=== PATIENT | male | born 1955 | race American Indian/Alaskan Native ===

== ENCOUNTER 2022-03-03 18:22 | Emergency (ER) | payer OTHER ==
--- NOTE | 2022-03-03 22:08 | Cat Scan Report ---
CT head/brain wo con INDICATION / CLINICAL INFORMATION: 66 years Male; R facial droop x 4 days. TECHNIQUE: Routine CT head without contrast. All CT scans at this location are performed using CT dos e reduction for ALARA by means of automated exposure control. COMPARISON: None. FINDINGS: BRAIN / INTRACRANIAL CONTENTS: The motion degrades the image quality. However, there is extensive cer ebral white matter disease most consistent with microvascular angiopathy. There is an older infarct a long the posterior limb of the right internal capsule and lateral right thalamus. There is mild cereb ral atrophy with associated mild prominence of the ventricular system. There is dense calcification along the falx as well as foci along the tentorium. However, there is no clear CT evidence of acute intracranial hemorrhage or significant mass effect. ORBITS: No significant abnormality of visualized orbits. SINUSES / MASTOIDS: No significant abnormality in the visualized paranasal sinuses or mastoid air chiquita ls. CRANIOCERVICAL JUNCTION: No significant abnormality. ADDITIONAL FINDINGS: None. IMPRESSION: 1. There is extensive microvascular angiopathy as described without clear CT evidence of acute intrac ranial hemorrhage. Signer Name: Trever Lofton MD Signed: 03/03/2022 10:04 PM Workstation Name: [id number]
[2022-03-03 22:33] LABS: Alanine Aminotransferase 34 units/L (7-56); Albumin 4.6 g/dL (3.9-5); BUN/Creatinine Ratio 13; Blood Urea Nitrogen 10 mg/dL (9-20); Calcium 9.4 mg/dL (8.4-10.2); Hemolysis Index 4
[2022-03-03 22:58] LABS: Basophils % (Auto) 0.6 % (0.0-1.8); Eosinophils % (Auto) 0.8 % (0.0-4.3); Hematocrit 41.1 % (35.5-45.6); Hemoglobin 13.6 gm/dl (11.8-15.2); Lymphocytes # (Auto) 0.9 K/mm3 (1.2-5.4); Lymphocytes % (Auto) 18.5 % (13.4-35.0); Mean Corpuscular HGB Conc 33 % (32-34); Mean Corpuscular Volume 101 fl (84-94); Monocytes # (Auto) 0.7 K/mm3 (0.0-0.8); Monocytes % (Auto) 14.7 % (0.0-7.3); Platelet Count 131 K/mm3 (140-440); Red Blood Count 4.07 M/mm3 (3.65-5.03); Red Cell Distribution Width 14.1 % (13.2-15.2)
--- NOTE | 2022-03-03 23:43 | Emergency Department Report ---
HPI - General Chief Complaint: Neuro Symptoms/Deficit PUI?: No Time Seen by Provider: 03/03/22 21:04 - HPI HPI: 66-year-old male with self-reported history of CVA in 2019 (pt states he was seen at [facility] and at that time had a headache and left upper extremity and left lower extremity weakness, with current residual chronic left upper extremity and left lower extremity paresthesias), hypertension, hyperlipidemia, sent from [facility] for evaluation of "twisting of my mouth and swelling of my lips." Patient states his symptoms started 3 days ago while he was at work. He denies any headache falls head injury insect bites or allergic reactions. He denies any weakness in his right arm or leg. No diffic ulty talking walking or word finding. Patient reports he is compliant with his medications and takes both his blood pressure medicine as well as his aspirin daily. He last consumed aspirin this morning. Pain 0 out of 10. ED Past Medical Hx - Past Medical History Previous Medical History?: Yes Hx Hypertension: Yes Hx CVA: Yes Additional medical history: gout - Surgical History Past Surgical History?: No - Social History Smoking Status: Never Smoker ED Review of Systems ROS: Stated complaint: RT SIDE FACIAL DROOP/SINCE 03/01 Other details as noted in HPI Comment: All other systems reviewed and negative Physical Exam - Physical Exam Vital Signs: Vital Signs 03/03/22 03/03/22 18:26 20:31 Temperature 98.8 F 98.0 F Pulse Rate 97 H 67 Respiratory 18 Rate Blood Pressure 141/91 Blood Pressure 183/114 [Left] O2 Sat by Pulse 99 100 Oximetry General: Gen: pt is well appearing, no acute distress HEENT: Normocephalic atraumatic pupils equally round and reactive to light extraocular muscles intact sclera anicteric; mild R lower facial asymmetry noted Neck: Full range of motion, no midline spinal tenderness palpation, no JVD, no carotid bruits, no nuchal rigidity CVS: S1-S2 regular rate and rhythm with no gallops rubs or murmurs, chest wall nontender Pulmonary: Clear to auscultation bilaterally, no wheezes rales or rhonchi Abdomen: Soft nondistended nontender no guarding or rebound tenderness, no palpable deformities or step-offs, normal active bowel sounds, no hepatosplenome jaqueline, no pulsatile masses : Deferred Extremities: No cyanosis no clubbing no edema, intact distal peripheral pulses, Integumentary: Skin normal, no petechia no purpura no abscess no lacerations no evidence of trauma no evidence of infection Neuro: Patient is awake alert and oriented to person place time situation, mentating well, cranial nerves II through XII intact, no focal neurodeficits, sensation grossly tact; pt is able to raise bothe eyebrows normally and equivocally; Psych: Calm cooperative, mood affect normal ED Course Vital Signs 03/03/22 03/03/22 18:26 20:31 Temperature 98.8 F 98.0 F Pulse Rate 97 H 67 Respiratory 18 Rate Blood Pressure 141/91 Blood Pressure 183/114 [Left] O2 Sat by Pulse 99 100 Oximetry - Reevaluation(s) Reevaluation #1: 03/03/22 23:53 Patient is comfortable and well-appearing, is in no acute distress, will continue to monitor ED Medical Decision Making - Lab Data Result diagrams: 03/03/22 21:31 03/03/22 21:31 - Radiology Data Radiology results: pending - Medical Decision Making 66-year-old male presents for evaluation of swelling to lower lips and concerns of facial asymmetry x3 days. Vital signs stable. Serum labs unremarkable. CT head negative. CT angio head and neck spine pending. NIH SCORE IS ZERO Due to change in provider shift time, pt signed out to Dr. Echevarria, overnight ER attending, at 12:00am. Critical care attestation.: If time is entered above; I have spent that time in minutes in the direct care of this critically ill patient, excluding procedure time. ED Disposition Clinical Impression: Facial asymmetry Disposition: 01 HOME / SELF CARE / HOMELESS Is pt being admited?: No Does the pt Need Aspirin: No Condition: Stable Additional Instructions: FOLLOW UP WITH YOUR DOCTOR AT [facility] THIS WEEK FOR REASSESSMENT. THIS IS VERY IMPORTANT. CONTINUE TO TAKE YOUR ASPIRIN DAILY. Return to the nearest emergency department soon as possible if you develop dizziness, weakness, vomiting, vision changes, difficulty talking walking or word finding, or if any other new worrisome symptoms develop. Referrals: [facility] [Other] - 3-5 Days
--- NOTE | 2022-03-03 23:58 | Cat Scan Report ---
CT angio neck INDICATION / CLINICAL INFORMATION: 66 years Male; R facial droop x 4 days; prior hx of cva. TECHNIQUE: Thin cut axial images obtained through the head during IV bolus contrast administration. S agittal, coronal, and 3 plane MIP reconstructions performed by the technologist. NASCET type criteria used evaluate stenoses. All CT scans at this location are performed using CT dose reduction for ALAR A by means of automated exposure control. COMPARISON: None available. FINDINGS: CAROTID ARTERIES: There is no clear CTA evidence of significant stenosis involving cervical carotid a rteries by NASCET criteria. The carotid bifurcations are widely patent. VERTEBRAL ARTERIES: The motion as well as the beam hardening from the dense contrast within the adjac ent venous structures obscures evaluation of the proximal vertebral arteries. There is no clear evide nce of significant narrowing involving the included mid to distal segments. ARCH: The arch vessels are also somewhat obscured by the above artifact. However, there is no signifi cant narrowing of the origins of the arch vessels. ADDITIONAL FINDINGS: Remainder of the surrounding soft tissues are grossly normal. IMPRESSION: There is no CTA evidence of significant stenosis involving carotid or visualized vertebral arteries b y NASCET criteria. The study was specified as stat and dictated emergently at 10:53 PM Central standard time and correla tion would be needed regarding "right facial droop 4 days". Signer Name: Trever Lofton MD Signed: 03/03/2022 11:54 PM Workstation Name: [id number]
--- NOTE | 2022-03-04 00:03 | Cat Scan Report ---
CT angio head INDICATION / CLINICAL INFORMATION: 66 years Male; R facial droop x 4 days; prior hx of cva. TECHNIQUE: Thin cut axial images obtained through the head during IV bolus contrast administration. S agittal, coronal, and 3 plane MIP reconstructions performed by the technologist. NASCET type criteria used evaluate stenoses. Automated exposure control utilized for radiation reduction purposes. COMPARISON: None available. FINDINGS: INTERNAL CAROTID ARTERIES: There is no CT evidence of significant stenosis involving intracranial ICA s by NASCET criteria. VERTEBROBASILAR SYSTEM: The visualized vertebral basilar system also demonstrate appropriate caliber without significant focal narrowing. CEREBRAL ARTERIES: The proximal cerebral arteries and adjacent segments appear to demonstrate appropr iate caliber without CT evidence of large vessel occlusion. ANEURYSM: None identified. ADDITIONAL FINDINGS: There is extensive microvascular angiopathy which correlates with the earlier no ncontrast CT head. IMPRESSION: There is no clear CT evidence of large vessel occlusion amenable to endovascular treatment. The study was specified as stat and dictated emergently at 10:58 PM Central standard time and correla tion be needed given the history of "right facial droop for 4 days". Signer Name: Trever Lofton MD Signed: 03/03/2022 11:58 PM Workstation Name: [id number]
[2022-03-04 02:58] VITALS: BP 159/90
== END 2022-03-04 02:15 | disposition home or self-care (01) ==
LOC: ED 18:22
DX: Q67.0 Congenital facial asymmetry (principal); I10 Essential (primary) hypertension; Z86.73 Personal history of transient ischemic attack (TIA), and cerebral infarction without residual deficits
CPT/HCPCS: 36415; 70450; 70496; 70498; 80053; 83735; 85025; 99284; Q9967